=== PATIENT | male | born 1940 | race Caucasian/White ===

== ENCOUNTER 2018-03-28 05:25 | Inpatient (IN) ==
[2018-03-28] MEDS ORDERED: Heparin 10,000 UNITS/10 ML Vial (for IV use) ONE (06:22)
[2018-03-28] MEDS ORDERED: ceFAZolin 2 GM Premix Inj 0 GM/0 ML PIGGYBACK IV.SIG ONE (06:22)
[2018-03-28] MEDS ORDERED: Protamine Sulfate Inj 50 MG/5 ML Vial ONE (06:22)
[2018-03-28] MEDS ORDERED: Heparin/NS PF Inj 500 ML ONE (06:22)
--- NOTE | 2018-03-28 06:38 | XR ---
EXAM DATE: 03/28/2018 6:18 AM EST AGE/SEX: 77 years / Male INDICATIONS: Pre-op for abdominal surgery. CLINICAL DATA: This is the patient's initial encounter. Patient reports that signs and symptoms have been present for 1 day and indicates a pain score of 0/10. MEDICAL/SURGICAL HISTORY: None. None. COMPARISON: No prior exams available for comparison. FINDINGS: No significant focal pleural or parenchymal opacities. The cardiomediastinal contours are unremarkab le. Osseous structures are intact. CONCLUSION: 1. No acute cardiopulmonary disease. Electronically signed by: Jam Arellano MD Board Certified Radiologist 03/28/2018 6:37 AM EST
[2018-03-28 06:57] LABS: Baso # (Auto) 0.1 th/mm3 (0.0-0.2); Eos # (Auto) 0.3 th/mm3 (0.0-0.4); Eos % (Auto) 4.4 % (0.0-4.0); Hematocrit 42.1 % (39.0-51.0); Lymph # (Auto) 1.7 th/mm3 (1.0-4.8); Lymph % (Auto) 23.1 % (9.0-44.0); Mean Corpuscular HGB Conc 33.2 % (32.0-36.0); Mean Corpuscular Hemoglobin 31.1 pg (27.0-34.0); Mean Corpuscular Volume 93.8 fL (80.0-100.0); Mean Platelet Volume 7.7 fL (7.0-11.0); Mono # (Auto) 0.8 th/mm3 (0.0-0.9); Mono % (Auto) 10.6 % (0.0-8.0); Neut # (Auto) 4.4 th/mm3 (1.8-7.7); Neut % (Auto) 60.9 % (16.0-70.0); Platelet Count 276 th/mm3 (150-450); Red Blood Count 4.49 mil/mm3 (4.50-5.90); Red Cell Distribution Width 13.4 % (11.6-17.2); White Blood Count 7.2 th/mm3 (4.0-11.0)
[2018-03-28] MEDS ORDERED: Chlorhexidine Gluconate 2% 1 Pack (2 Cloths) TOPICAL ONE (07:00)
[2018-03-28] MEDS ORDERED: Sodium Chlor 0.9% Inj 500 ML IV.CONT ONE (07:00)
[2018-03-28] MEDS ORDERED: Metoprolol Tartrate 25 MG Tablet PO ONE (07:00)
[2018-03-28 07:12] LABS: Calcium 8.4 mg/dL (8.5-10.1); Carbon Dioxide 27.3 meq/L (21.0-32.0); Potassium 4.2 meq/L (3.5-5.1)
[2018-03-28] MEDS ORDERED: Glycopyrrolate Inj 1 MG/5 ML Syringe IV.PUSH ONE (07:52)
[2018-03-28] MEDS ORDERED: Phenylephrine/NS 1000 MCG/10ML Syringe IV.PUSH ONE (07:52)
[2018-03-28] MEDS ORDERED: Normosol-R pH 7.4 Inj 2,000 ML IV.CONT ONE (07:52)
[2018-03-28] MEDS ORDERED: Labetalol HCl Inj 100 MG/20 ML Vial IV.CONT ONE (07:52)
[2018-03-28] MEDS ORDERED: Neostigmine Inj 5 MG/5 ML Syringe IV.PUSH ONE (07:52)
[2018-03-28] MEDS ORDERED: Lidocaine PF 1% Inj 5 ML Syringe OTHER ONE (07:52)
[2018-03-28] MEDS ORDERED: Succinylcholine Inj 100 MG/5 ML Syringe IV.PUSH ONE (07:52)
[2018-03-28] MEDS ORDERED: Sugammadex Inj 200 MG/2 ML Vial IV.PUSH ONE (10:02)
--- NOTE | 2018-03-28 11:11 | P.OP ---
Preoperative Diagnosis: 6.1 cm symptomatic infrarenal abdominal aneurysm Postoperative Diagnosis: 6.1 cm symptomatic infrarenal abdominal aneurysm Date of procedure: 03/28/18 Procedure: 1. Abdominal aortogram 2. Endovascular aneurysm repair using Cook zenith endograft 3. Left common femoral artery, superficial femoral artery, profunda femoral artery endarterectomy with pericardial patch angioplasty 4. Perclose of the bilateral common femoral arteries 5. Ultrasound-guided access of the bilateral common femoral artery 6. Radiological supervision and interpretation Implants: 1. Cook Zenith main body 2153 2. Cook Zenith right iliac clamp 6369 3. Cook Zenith left iliac limb 1356 Anesthesia: GETA Surgeon: Kt Basilio MD Estimated blood loss (mL): 10 Operation and Findings: Findings 1. Successful endovascular aneurysm repair using Cook Zenith endograft. There is no evidence of endoleak at the end of the procedure. 2. Absence of left lower extremity pedal pulses at the end of the procedure. A cutdown on the left common femoral artery was performed and noted extensive plaque shifting occluding the left common femoral artery lumen. The vessels were repaired using endarterectomy with pericardial patch angioplasty. There are O's multiphasic pedal signals bilaterally at the end of the procedure. Operation in details 1. The patient was taken to the operating room, laid supine on the OR table. After general trach anesthesia, the patient was prepped and draped in the standard sterile fashion. Timeout was called with all members in the OR in agreement. Using ultrasound again access, we accessed the bilateral common femoral arteries. 2 Perclose devices were placed in each of the common femoral arteries. 8 Danish sheath was placed bilaterally. A pigtail was placed through the right common femoral artery access. The left external iliac was serially dilated to a 22 Danish dilator. The device was delivered through the left common femoral artery access. Abdominal aortogram was performed and the graft was un-sheathed below the renal arteries. Confirmation angiogram was performed. Following this the graft was fully deployed. The gate was cannulated and confirmation of wire position was performed. The contralateral limb was the liver through the right common femoral artery access and deployed proximal to the common iliac bifurcation. The main body was completely deployed and the nose: Was captured and removed. Left iliac artery angiogram was performed and the ipsilateral limb was delivered through the left common femoral artery access and deployed. The graft was postdilated. Completion angiogram was performed. At this point all wire catheter and sheath removed and hemostasis were achieved by applying the 2 Perclose device to each of the common femoral arteries. At the end of the procedure were noted absence of the left pedal signals. A left common femoral artery cutdown was performed. Dissection was taken down through the subcutaneous tissues electrocautery. The common femoral artery superficial femoral artery profunda femoral artery were all dissected and encircled Silastic loop. An arteriotomy was created and the left common femoral artery extended into the left superficial femoral artery. Left common femoral artery, superficial femoral artery, and profunda femoral artery endarterectomy performed. The artery was repaired using a pericardial patch loss catheter removal length and secured utilizing a 5-0 Prolene suture in a running fashion. Hemostasis achieved. The wound was closed in multiple layers using Vicryl suture followed by Monocryl suture. Sterile dressing was applied. The patient tolerated the procedure well and was taken to recovery unit in stable condition.
[2018-03-28] MEDS ORDERED: Bisacodyl 10 MG Supp RECTAL PRN (11:13)
[2018-03-28] MEDS ORDERED: Morphine Inj 4 MG/ML Vial IV.PUSH PRN (11:13)
[2018-03-28] MEDS ORDERED: ceFAZolin Inj 1 GM in Sodium Chlor 0.9% Inj 100 ML IV.SIG ONE (11:21)
[2018-03-28] MEDS ORDERED: Iohexol 300 MG/ML 50 ML Vial (for Rad Diag) IVCONTRAST ONE (11:22)
[2018-03-28] MEDS ORDERED: fentaNYL Citrate Inj 100 MCG/2 ML Ampul ONE ×2 (11:23→11:24)
[2018-03-28] MEDS ORDERED: *morphine SULFATE 4 MG/ML PERIprocedure ONLY ONE ×3 (11:51→12:24)
[2018-03-28] MEDS: Sod Chloride 0.9% Inj 1,000 ML IV.CONT SCH (12:11)
[2018-03-28] MEDS ORDERED: *HYDROmorphone PF Inj 1 MG/ML Ampul PERIprocedural Use ONLY ONE (12:42)
[2018-03-28] MEDS: Senna/Docusate Sodium 8.6/50 MG Tablet PO SCH (20:44)
[2018-03-28] MEDS: Famotidine 20 MG Tablet PO SCH (20:44)
[2018-03-29] MEDS: Sod Chloride 0.9% Inj 1,000 ML IV.CONT SCH ×3 (00:16→16:36)
[2018-03-29 04:53] LABS: Hemoglobin 12.5 gm/dL (13.0-17.0); Mean Corpuscular HGB Conc 32.8 % (32.0-36.0); Mean Corpuscular Hemoglobin 30.7 pg (27.0-34.0); Mean Corpuscular Volume 93.6 fL (80.0-100.0); Mean Platelet Volume 8.2 fL (7.0-11.0); Platelet Count 224 th/mm3 (150-450); Red Blood Count 4.06 mil/mm3 (4.50-5.90); Red Cell Distribution Width 13.3 % (11.6-17.2); White Blood Count 11.1 th/mm3 (4.0-11.0)
[2018-03-29 05:35] LABS: Calcium 8.1 mg/dL (8.5-10.1); Carbon Dioxide 25.9 meq/L (21.0-32.0); Potassium 5.1 meq/L (3.5-5.1)
[2018-03-29] MEDS: Famotidine 20 MG Tablet PO SCH ×2 (08:42→20:17)
[2018-03-29] MEDS: Senna/Docusate Sodium 8.6/50 MG Tablet PO SCH ×2 (08:42→20:17)
--- NOTE | 2018-03-29 09:26 | P.PNVS ---
Subjective Post Op Day #: 1 Procedure: EVAR with L CLASS A TRUCK DRIVER repair, R Perclose Subjective/Hospital Course: emesis overnight but no CP. Abdomen subjectively better than pre-op HD stable Merida removed this morning Objective Vital Signs / I&O: Vital Signs 03/28/18 11:09 03/28/18 11:15 03/28/18 11:30 Temperature 97.3 F L Pulse Rate 75 73 76 Respiratory Rate 20 16 14 Blood Pressure 147/91 H 127/75 129/82 Pulse Oximetry 94 L 96 96 03/28/18 11:45 03/28/18 12:00 03/28/18 12:15 Temperature Pulse Rate 72 72 76 Respiratory Rate 14 14 14 Blood Pressure 126/79 118/73 118/75 Pulse Oximetry 95 95 96 03/28/18 12:30 03/28/18 13:30 03/28/18 14:00 Temperature 97.6 F Pulse Rate 78 87 85 Respiratory Rate 14 14 18 Blood Pressure 126/76 102/61 93/55 L Pulse Oximetry 95 95 94 L 03/28/18 14:30 03/28/18 15:00 03/28/18 15:45 Temperature Pulse Rate 83 83 86 Respiratory Rate 11 L 9 L Blood Pressure 105/66 113/69 Pulse Oximetry 95 94 L 03/28/18 18:05 03/28/18 19:00 03/28/18 19:21 Temperature 98.5 F Pulse Rate 92 H 100 H Respiratory Rate 16 Blood Pressure 92/68 L Pulse Oximetry 95 94 L 03/28/18 23:00 03/29/18 03:00 03/29/18 07:35 Temperature 98.4 F 98.5 F Pulse Rate 93 H 90 91 H Respiratory Rate 16 16 Blood Pressure 107/72 111/71 Pulse Oximetry 96 94 L 03/29/18 07:41 Temperature 98.3 F Pulse Rate 88 Respiratory Rate 18 Blood Pressure 111/77 Pulse Oximetry 94 L Intake & Output 03/28/18 03/29/18 03/29/18 18:59 06:59 18:59 Intake Total 2121 / 2121 1588 / 1588 Output Total 775 / 775 500 / 500 Balance 1346 / 1346 1088 / 1088 Intake: IV 1388 / 1388 NS Inj 1,000 ML @ 75 mls/hr IV. 1388 / 1388 CONT .[id number] [facility] Rx#:[id number] Oral 221 / 221 200 / 200 Anesthesia Amount 1900 / 1900 Output: Emesis 150 / 150 Estimated Blood Loss 125 / 125 Urine Amount (Catheter) 650 / 650 350 / 350 Indwelling Urethral Catheter 650 / 650 350 / 350 Other: # Bowel Movements 0 # Emeses 2 Exam: no abdominal tenderness groins soft feet warm motor intact Laboratory Results - last 24 hr 03/29/18 03/29/18 03:18 03:18 WBC 11.1 H D RBC 4.06 L Hgb 12.5 L Hct 38.0 L MCV 93.6 MCH 30.7 MCHC 32.8 RDW 13.3 Plt Count 224 MPV 8.2 Sodium 138 Potassium 5.1 D Chloride 103 Carbon Dioxide 25.9 Anion Gap 9 BUN 22 H Creatinine 1.78 H Estimated GFR 37 L Random Glucose 110 H Calcium 8.1 L Assessment and Plan - Assessment (1) AAA (abdominal aortic aneurysm) Code(s): I71.4 - Abdominal aortic aneurysm, without rupture Status: Acute - Plan POD#1 s/p EVAR with L CLASS A TRUCK DRIVER repair and R CLASS A TRUCK DRIVER Perclose abdominal pain gone but + nausea and feels like need to have BM 1. continue MIVF for now; Hct ok and cr only mildly higher 2. Watch UOP, irvin without Merida 3. Recheck CBC, BMP tomorrow 4. could transition to [facility] on telemetry Discharge Planning: likely tomorrow (POD#2) if nausea resolved, voids on his own, and labs and groins stable
[2018-03-29] MEDS: Heparin - SQ 10,000 UNITS/ML Vial SQ SCH ×2 (11:49→20:17)
[2018-03-29] MEDS ORDERED: Zolpidem Tartrate 5 MG Tablet PO ONE (20:45)
[2018-03-30] MEDS: Sod Chloride 0.9% Inj 1,000 ML IV.CONT SCH (05:19)
[2018-03-30] MEDS: Heparin - SQ 10,000 UNITS/ML Vial SQ SCH (05:19)
[2018-03-30 07:45] VITALS: RESP 18
[2018-03-30 08:31] LABS: Hematocrit 34.4 % (39.0-51.0); Hemoglobin 11.5 gm/dL (13.0-17.0); Mean Corpuscular HGB Conc 33.5 % (32.0-36.0); Mean Corpuscular Volume 92.7 fL (80.0-100.0); Mean Platelet Volume 7.4 fL (7.0-11.0); Platelet Count 184 th/mm3 (150-450); Red Cell Distribution Width 12.9 % (11.6-17.2); White Blood Count 11.1 th/mm3 (4.0-11.0)
[2018-03-30 08:33] VITALS: BP 152/96; PULSE 89; TEMP 99.5; O2SAT 92
[2018-03-30 08:57] LABS: Calcium 7.6 mg/dL (8.5-10.1); Carbon Dioxide 26.7 meq/L (21.0-32.0); Potassium 4.1 meq/L (3.5-5.1)
--- NOTE | 2018-03-30 09:13 | P.PNVS ---
Subjective Post Op Day #: 2 Procedure: EVAR with L CHILDBIRTH AND INFANT CARE TEACHER repair, R Perclose Subjective/Hospital Course: urinary retention overnight, req Merida re-insertion Merida removed this morning and + voiding no new abdominal pain + BM adonis po feet ok Objective Vital Signs / I&O: Vital Signs 03/29/18 09:39 03/29/18 10:50 03/29/18 10:52 Temperature 98 F Pulse Rate 105 H 105 H Respiratory Rate 18 Blood Pressure 122/85 Pulse Oximetry 98 99 03/29/18 14:53 03/29/18 14:55 03/29/18 17:30 Temperature 98.7 F Pulse Rate 107 H 107 H Respiratory Rate 18 Blood Pressure 140/85 Pulse Oximetry 99 97 03/29/18 19:00 03/29/18 23:00 03/29/18 23:15 Temperature 98.9 F Pulse Rate 103 H 87 Respiratory Rate 20 18 Blood Pressure 149/91 H Pulse Oximetry 95 03/30/18 00:00 03/30/18 03:00 03/30/18 07:00 Temperature 98.8 F 98.8 F 99.5 F Pulse Rate 109 H 87 89 Respiratory Rate 20 20 18 Blood Pressure 142/91 H 147/95 H 152/96 H Pulse Oximetry 95 94 L 92 L Intake & Output 03/29/18 03/30/18 03/30/18 18:59 06:59 18:59 Intake Total 2622 / 2622 240 / 240 Output Total 460 / 460 1919 / 1919 Balance 2162 / 2162 -1680 / -1680 Weight 52 kg Intake: IV 1822 / 1822 0 / 0 LR 1000 mL Inj 1,000 ML @ 30 1000 / 1000 mls/hr IV.CONT .Q24H ONE Rx#: [id number] NS Inj 1,000 ML @ 75 mls/hr IV. 822 / 822 0 / 0 CONT .[id number] [facility] Rx#:[id number] Oral 800 / 800 240 / 240 Output: Urine 450 / 450 Stool 10 / 10 Urine Amount (Catheter) 1919 Indwelling Urethral Catheter 1919 Other: # Voids 6 Date of Last Bowel Movement 03/30/18 03/29/18 # Bowel Movements 1 Exam: resting comfortably, no distress + ecchymoses L groin and penis but no hematoma + B LE strong Doppler signals abdomen not distended and nontender Laboratory Results - last 24 hr 03/30/18 03/30/18 08:23 08:23 WBC 11.1 H RBC 3.70 L Hgb 11.5 L Hct 34.4 L MCV 92.7 MCH 31.0 MCHC 33.5 RDW 12.9 Plt Count 184 MPV 7.4 Sodium 135 L Potassium 4.1 D Chloride 100 Carbon Dioxide 26.7 Anion Gap 8 BUN 20 H Creatinine 1.19 Estimated GFR 59 L Random Glucose 76 Calcium 7.6 L Assessment and Plan - Assessment (1) AAA (abdominal aortic aneurysm) Code(s): I71.4 - Abdominal aortic aneurysm, without rupture Status: Acute - Plan POD#2 s/p EVAR with L [employer] C[employer] TEACHER repair and R [employer]IL[employer]TH [employer] INFANT C[employer] TEACHER Perclose no abdominal pain, voiding 1. Hct drop (38 to 34) dilutional given creatinine 1.7 to 1.1; overall looks good 2. If he walks around this morning, he can be discharged later today 3. Will f/u this week for Prevena removal Discharge Planning: likely today (POD#2) if ambulates
--- NOTE | 2018-03-30 09:18 | P.DS ---
Discharge Summary - Admission Date 03/28/18 11:38 - Admission Diagnosis (1) AAA (abdominal aortic aneurysm) - Discharge Diagnosis (1) AAA (abdominal aortic aneurysm) Status: Acute - Summary Brief History from admission: 77 yo male with symptomatic AAA, admitted for urgent EVAR. Procedure: EVAR with L TRACK GREASER repair, R Perclose Significant Findings: Abnormal Lab Results 03/30/18 03/30/18 08:23 08:23 WBC 11.1 H RBC 3.70 L Hgb 11.5 L Hct 34.4 L MCV 92.7 MCH 31.0 MCHC 33.5 RDW 12.9 Plt Count 184 MPV 7.4 Sodium 135 L Potassium 4.1 D Chloride 100 Carbon Dioxide 26.7 Anion Gap 8 BUN 20 H Creatinine 1.19 Estimated GFR 59 L Random Glucose 76 Calcium 7.6 L Hospital Course: He did well post-operatively from a hemodynamic standpoint. No new abdominal pain. Did require MIVF for nausea that subsided within 24 hours and then Merida re-insertion with subsequent removal. At discharge, he was ambulating, eating, and voiding. - Discharge Instructions Any questions or concerns: Call [facility] at [facility] [phone] Discharge Plan - Discharge Disposition Patient Disposition: Discharge Home - Discharge Condition Condition: Good - Discharge Order Discharge Orders: Discharge Order (Routine); Ordered 03/30/18 Ordered By: Charlie Martinez - Discharge Details Anticipated Discharge Date: 03/29/17 - Physicians Team Primary Care Provider: Jaylan Price JR Attending Provider: Kt Basilio - Rxs /Orders / Referrals /Forms Prescriptions: New oxycodone-acetaminophen [Percocet] 5-325 mg Tablet 1 tab PO Q4HR Qty: 15 RF: 0 Continue aspirin [Aspirin Low Dose] 81 mg Tablet,Delayed Release (Dr/Ec) 81 mg PO DAILY Referrals: Jaylan Price JR, DO [Primary Care Provider] - See Instructions Kt Basilio MD [Physician] - 04/02/18 (Office will call patient with time )
[2018-03-30] MEDS: Senna/Docusate Sodium 8.6/50 MG Tablet PO SCH (09:34)
[2018-03-30] MEDS: Famotidine 20 MG Tablet PO SCH (09:34)
--- NOTE | 2018-03-31 12:51 | ECG ---
Date Performed: 03/28/2018 Time Performed: 06:15:14 PTAGE: 77 years EKG: Sinus rhythm WITH PACs LOW QRS VOLTAGES IN LIMB LEADS BORDERLINE ECG NO PREVIOUS TRACING DOCTOR: Davin Sharma Interpretating Date/Time 03/31/2018 12:49:52
== END 2018-03-30 12:15 | disposition home or self-care (01) | DRG 269 ==
LOC: HSDC 05:25 → EDSTATUS 07:30 → HSDI 11:38 → HCVI 16:06
PROVIDERS: ADMIT Surgery; ATTEND Surgery
CPT/HCPCS: 71010; 71045; 75630; 80048; 85025; 85027; 86850; 86900; 86901; 86923; 88304; 88305; 88311; 93005; A4646; C1725; C1769; C1874; J0131; J0330; J0690; J1100; J1170; J1644; J2270; J2370; J2405; J2704; J2710; J2720; J3010; J7030; J7120; Q9949; Q9967